=== PATIENT | male | born 1965 | race Caucasian/White ===

== ENCOUNTER 2016-06-06 01:38 | Emergency (ER) | payer OTHER ==
[~2016-06-06] VITALS: Ht 177.8 cm; Wt 85.0 kg
[2016-06-06 01:44] VITALS: Ht 177.8 cm; Wt 85.0 kg
--- NOTE | 2016-06-06 01:55 | ERD ---
ER Documentation Chief Complaint Date/Time DATE: 06/06/16 TIME: 01:54 Chief Complaint rambling, confused- picked up from 09-05 from [facility] This a 50-year-old male with a history of psychiatric disease who comes in saying he needs to drink water. He denies being suicidal homicidal ideation. He shows goal oriented speech and decision-making capacity and is alert and oriented 4. No evidence of psychosis ROS All systems reviewed and are negative except as per history of present illness. Physical Exam Vitals Vital Signs Date Time Temp Pulse Resp B/P Pulse Ox O2 Delivery O2 Flow Rate FiO2 06/06/16 01:44 98.1 98 20 165/110 98 Physical Exam Const: [] Head: Atraumatic Eyes: Normal Conjunctiva ENT: Normal External Ears, Nose and Mouth. Neck: Full range of motion..~ No meningismus. Resp: Clear to auscultation bilaterally Cardio: Regular rate and rhythm, no murmurs Abd: Soft, non tender, non distended. Normal bowel sounds Skin: No petechiae or rashes Back: No midline or flank tenderness Ext: No cyanosis, or edema Neur: Awake and alert Psych: Normal Mood and Affect Procedures/MDM Medical decision-makin-year-old male here essentially for rambling behavior. He has no evidence of suicidal homicidal ideation. He does not significantly disabled. He has no evidence of psychosis. He will be discharged home Departure Diagnosis: Primary Impression: Psychological disorder Condition: Stable TATIANA LAST Jun 06, 2016 01:55
== END 2016-06-06 02:12 | disposition left against medical advice (07) ==
LOC: E/R 01:38
DX: F99 Mental disorder, not otherwise specified (principal)
CPT/HCPCS: 99284